=== PATIENT | male | born 1950 | race Caucasian/White ===

== ENCOUNTER 2018-07-16 07:30 | Day surgery (SDC) | payer MEDICARE, BC ==
[2018-07-16] MEDS ORDERED: Lactated Ringers 1,000 ML IV SCH (07:45)
[2018-07-16] MEDS ORDERED: Midazolam 1 MG/ML 2 ML SDV ONE (08:39)
[2018-07-16] MEDS ORDERED: fentaNYL 100 MCG/2 ML SDV ONE (08:39)
[2018-07-16] MEDS ORDERED: Propofol 200 MG/20 ML SDV ONE (08:39)
[2018-07-16 10:53] VITALS: BP 112/74
--- NOTE | 2018-07-17 07:56 | OR ---
DATE OF PROCEDURE: 07/16/2018 PREOPERATIVE DIAGNOSIS: History of colon polyps; strong family history of colon cancer--mother. POSTOPERATIVE DIAGNOSES: Diverticulosis; history of colon polyps; strong family history of colon cancer--mother. PROCEDURE: Colonoscopy to the cecum. SURGEON: Bertrand Jeffrey MD ANESTHESIA: IV anesthesia with monitored anesthesia care. INDICATION: This 67-year-old white male is referred for a colonoscopy. He has a personal history of tubular adenomas. Additionally, his mother had colon cancer. I counseled him for the procedure, including risks and alternatives, and he gave his informed consent to proceed. DESCRIPTION OF PROCEDURE: The patient was placed in the left lateral decubitus position. IV anesthesia was administered by the Anesthesia Service. Time-out was held. A rectal exam was performed, which was unremarkable. The flexible video Olympus colonoscope was introduced through his anus, up his rectum, and out his colon all the way to the cecum. En route, we saw a few rare scattered left-sided diverticula. There was no bleeding or inflammation associated with any of them. Once the cecum was reached, the scope was slowly withdrawn, examining the mucosa throughout. No additional mucosal abnormalities were noted. The scope was retroflexed in the rectum with the distal rectum appearing unremarkable. The scope was straightened and removed. He tolerated the procedure well. Bertrand Jeffrey MD /[id number] MTDD
== END 2018-07-16 10:54 | disposition home or self-care (01) ==
LOC: JP.SDS 07:30
PROVIDERS: ATTEND Surgery
DX: Z12.11 Encounter for screening for malignant neoplasm of colon (principal); K57.30 Diverticulosis of large intestine without perforation or abscess without bleeding; Z86.010 Personal history of colon polyps; Z80.0 Family history of malignant neoplasm of digestive organs
CPT/HCPCS: G0105; J2250; J2704; J3010; J7120